=== PATIENT | female | born 1970 | race African-American/Black ===

== ENCOUNTER 2017-03-04 09:41 | Emergency (ER) | payer BC, MEDICAID ==
[~2017-03-04] VITALS: Ht 157.5 cm; Wt 45.0 kg
[~2017-03-04 09:41] MED LIST: AMYL1CAP61 PO; ENAL5TAB PO; GABA-529 PO; HYDR-519 PO; MEGE400O PO; OMEP20CA10 PO; SITA1TAB8 PO
[2017-03-04] MEDS ORDERED: SODIUM CHLORIDE 0.9% 1,000 ML IV ONE (12:45)
[2017-03-04] MEDS ORDERED: METOCLOPRAMIDE HCL 10MG/2ML VIAL IV ONE (12:45)
[2017-03-04] MEDS ORDERED: MORPHINE SULFATE 4 MG/ML CPJ (NOT FOR IM USE) IV ONE (12:45)
[2017-03-04 13:02] LABS: CLARITY URINE CLOUDY (CLEAR); COLOR URINE DARK YELLOW (YELLOW); GLUCOSE URINE 3+ (NEGATIVE); KETONES URINE TRACE (NEGATIVE); LEUKOCYTE ESTERASE URINE NEGATIVE (NEGATIVE); NITRITE URINE NEGATIVE (NEGATIVE); OCCULT BLOOD URINE NEGATIVE (NEGATIVE); PH URINE 5.5 (4.5-8.0); PROTEIN URINE 2+ (NEGATIVE); SPECIFIC GRAVITY URINE 1.042 (1.005-1.030)
[2017-03-04 13:08] LABS: DIFFERENTIAL COMMENT 0; HEMATOCRIT. 37.8 % (36.0-48.0); HEMOGLOBIN. 11.5 g/dL (12.0-16.0); MEAN CORPUSCULAR HEMOGLOBIN 22.9 pg (28.0-32.0); MEAN CORPUSCULAR HGB CONC 30.4 g/dL (31.0-37.0); MEAN CORPUSCULAR VOLUME 75.1 fL (81.0-99.0); PLATELET 256 x1000/uL (130-400); RED BLOOD CELL COUNT 5.03 mill/uL (4.2-5.4); RED CELL DISTRIBUTION WIDTH 14.4 % (11.6-14.6)
[2017-03-04 13:10] LABS: CHLORIDE 98 mEq/L (98-107); INDEX HEMOLYSI 1 (1-3); INDEX ICTERIC 1 (1-4); INDEX LIPEMIC 1 (1-3)
[2017-03-04 13:15] LABS: AMORPHOUS SEDIMENT URINE 2+ /lpf; BACTERIA URINE TRACE; MUCUS URINE 2+ /lpf (< = 2+); RBC URINE NONE SEEN /hpf (0-2); SQUAMOUS EPITHELIAL CELL URINE 2+ /lpf (RARE/1+); WBC URINE 0-2 /hpf (0-2)
[2017-03-04 13:16] LABS: ALANINE AMINOTRANSFERASE 18 IU/L (13-61); ALBUMIN 3.8 g/dL (3.4-5.0); ANION GAP 12; CALCIUM 8.9 mg/dL (8.5-10.1); CARBON DIOXIDE 29 mEq/L (21-32); LIPASE 40 IU/L (73-393); UREA NITROGEN BLOOD 13 mg/dL (7-21)
[2017-03-04 13:18] LABS: eGFR > 60 mL/min (>60)
[2017-03-04 13:25] LABS: HYPOCHROMASIA 1+; PLATELET ESTIMATE NORMAL
[2017-03-04 17:25] VITALS: BP 118/78
== END 2017-03-04 17:37 | disposition home or self-care (01) ==
LOC: ER 11:39
DX: K86.1 Other chronic pancreatitis (principal); K76.0 Fatty (change of) liver, not elsewhere classified; R10.13 Epigastric pain; Z88.6 Allergy status to analgesic agent; I10 Essential (primary) hypertension; E11.9 Type 2 diabetes mellitus without complications
CPT/HCPCS: 36415; 76705; 80053; 81001; 81025; 83690; 85007; 85027; 96361; 96374; 96375; 99285; G0482; J2270; J2765; J7030; Z7610

== ENCOUNTER 2017-05-22 11:18 | Emergency (ER) | payer BC, MEDICAID ==
[~2017-05-22] VITALS: Ht 157.5 cm; Wt 45.0 kg
[2017-05-22] MEDS ORDERED: MORPHINE SULFATE 4 MG/ML CPJ (NOT FOR IM USE) IV STA (12:27)
[2017-05-22] MEDS ORDERED: ONDANSETRON HCL 4MG/2ML VIAL IV STA (12:27)
[2017-05-22 12:45] LABS: BASOPHILS % 1.2 % (0.0-2.0); EOSINOPHILS % 1.3 % (0.0-5.0); HEMATOCRIT. 36.2 % (36.0-48.0); HEMOGLOBIN. 11.1 g/dL (12.0-16.0); LYMPHOCYTES % 29.5 % (20.0-50.0); MEAN CORPUSCULAR HEMOGLOBIN 21.8 pg (28.0-32.0); MEAN PLATELET VOLUME 8.1 fl (7.4-10.4); MONOCYTES % 4.9 % (2.0-8.0); NEUTROPHILS % 63.1 % (40.0-76.0); PLATELET 289 x1000/uL (130-400); RED CELL DISTRIBUTION WIDTH 14.6 % (11.6-14.6)
[2017-05-22 12:52] VITALS: BP 137/85
[2017-05-22 12:52] LABS: CHLORIDE 97 mEq/L (98-107)
[2017-05-22 12:53] LABS: INR 1.1
[2017-05-22 12:58] LABS: CARBON DIOXIDE 29 mEq/L (21-32)
[2017-05-22 13:35] LABS: CLARITY URINE CLEAR (CLEAR); COLOR URINE YELLOW (YELLOW); GLUCOSE URINE 3+ (NEGATIVE); KETONES URINE NEGATIVE (NEGATIVE); LEUKOCYTE ESTERASE URINE NEGATIVE (NEGATIVE); NITRITE URINE NEGATIVE (NEGATIVE); OCCULT BLOOD URINE NEGATIVE (NEGATIVE); PH URINE 5.5 (4.5-8.0); PROTEIN URINE 2+ (NEGATIVE); SPECIFIC GRAVITY URINE 1.041 (1.005-1.030)
== END 2017-05-22 13:00 | disposition home or self-care (01) ==
LOC: ER 12:40
DX: K86.1 Other chronic pancreatitis (principal); I10 Essential (primary) hypertension; E11.9 Type 2 diabetes mellitus without complications; F12.90 Cannabis use, unspecified, uncomplicated
CPT/HCPCS: 36415; 80053; 81001; 83690; 85025; 85610; 96374; 96375; 99284; J2270; J2405; Z7610

== ENCOUNTER 2017-06-13 14:11 | Emergency (ER) | payer BC, MEDICAID ==
[~2017-06-13] VITALS: Ht 157.5 cm; Wt 45.0 kg
[2017-06-13] MEDS ORDERED: MORPHINE SULFATE 4 MG/ML CPJ (NOT FOR IM USE) IV STA (17:08)
[2017-06-13] MEDS ORDERED: SODIUM CHLORIDE 0.9% 1,000 ML IV ONE (17:08)
[2017-06-13] MEDS ORDERED: METOCLOPRAMIDE HCL 10MG/2ML VIAL IV ONE (17:15)
[2017-06-13 17:25] LABS: BASOPHILS % 1.4 % (0.0-2.0); EOSINOPHILS % 1.9 % (0.0-5.0); HEMATOCRIT. 35.8 % (36.0-48.0); LYMPHOCYTES % 27.4 % (20.0-50.0); MEAN CORPUSCULAR HEMOGLOBIN 21.8 pg (28.0-32.0); MEAN CORPUSCULAR VOLUME 71.1 fL (81.0-99.0); MEAN PLATELET VOLUME 8.2 fl (7.4-10.4); MONOCYTES % 6.1 % (2.0-8.0); NEUTROPHILS % 63.2 % (40.0-76.0); PLATELET 292 x1000/uL (130-400); RED BLOOD CELL COUNT 5.03 mill/uL (4.2-5.4); RED CELL DISTRIBUTION WIDTH 16.2 % (11.6-14.6)
[2017-06-13 17:34] LABS: CARBON DIOXIDE 31 mEq/L (21-32); CHLORIDE 99 mEq/L (98-107); ETHANOL BLOOD < 10 mg/dL
[2017-06-13 17:42] LABS: CLARITY URINE CLEAR (CLEAR); COLOR URINE YELLOW (YELLOW); GLUCOSE URINE 3+ (NEGATIVE); KETONES URINE TRACE (NEGATIVE); LEUKOCYTE ESTERASE URINE NEGATIVE (NEGATIVE); NITRITE URINE NEGATIVE (NEGATIVE); OCCULT BLOOD URINE NEGATIVE (NEGATIVE); PH URINE 5.5 (4.5-8.0); PROTEIN URINE 2+ (NEGATIVE); SPECIFIC GRAVITY URINE 1.035 (1.005-1.030)
[2017-06-13 18:30] VITALS: BP 152/86
== END 2017-06-13 18:46 | disposition home or self-care (01) ==
LOC: ER 17:31
DX: R10.9 Unspecified abdominal pain (principal); R11.2 Nausea with vomiting, unspecified; Z87.19 Personal history of other diseases of the digestive system; Z88.6 Allergy status to analgesic agent
CPT/HCPCS: 36415; 80053; 81001; 81025; 83690; 85025; 96361; 96374; 96375; 99284; G0482; J2270; J2765; J7030; Z7610

== ENCOUNTER 2017-07-13 09:14 | Emergency (ER) | payer BC ==
[~2017-07-13] VITALS: Ht 157.5 cm; Wt 48.0 kg
[2017-07-13] MEDS ORDERED: SODIUM CHLORIDE 0.9% 1,000 ML IV ONE (09:33)
[2017-07-13] MEDS ORDERED: FAMOTIDINE 20MG/2ML VIAL IV STA (09:33)
[2017-07-13] MEDS ORDERED: MORPHINE SULFATE 4 MG/ML CPJ (NOT FOR IM USE) IV STA (09:33)
[2017-07-13] MEDS ORDERED: ONDANSETRON HCL 4MG/2ML VIAL IV STA (09:33)
[2017-07-13 09:37] VITALS: BP 128/61
[2017-07-13 09:59] LABS: CLARITY URINE CLOUDY (CLEAR); COLOR URINE YELLOW (YELLOW); GLUCOSE URINE TRACE (NEGATIVE); KETONES URINE NEGATIVE (NEGATIVE); LEUKOCYTE ESTERASE URINE NEGATIVE (NEGATIVE); NITRITE URINE NEGATIVE (NEGATIVE); OCCULT BLOOD URINE NEGATIVE (NEGATIVE); PH URINE 5.5 (4.5-8.0); PROTEIN URINE 1+ (NEGATIVE)
[2017-07-13 10:23] LABS: BASOPHILS % 0.9 % (0.0-2.0); EOSINOPHILS % 4.6 % (0.0-5.0); HEMOGLOBIN. 10.7 g/dL (12.0-16.0); MEAN CORPUSCULAR HEMOGLOBIN 21.9 pg (28.0-32.0); NEUTROPHILS % 54.5 % (40.0-76.0); PLATELET 280 x1000/uL (130-400); RED BLOOD CELL COUNT 4.86 mill/uL (4.2-5.4); RED CELL DISTRIBUTION WIDTH 17.2 % (11.6-14.6)
[2017-07-13] MEDS ORDERED: CEFTRIAXONE 1 G PREMIX 50 ML IV ONE (10:30)
[2017-07-13 10:31] LABS: CHLORIDE 98 mEq/L (98-107)
[2017-07-13 10:33] LABS: PARTIAL THROMBOPLASTIN TIME 23.9 sec (24.0-34.0); PROTHROMBIN TIME 10.9 sec
[2017-07-13 10:34] LABS: CARBON DIOXIDE 29 mEq/L (21-32); ETHANOL BLOOD < 10 mg/dL
[2017-07-13 10:40] LABS: HCG SCREEN NEGATIVE
[2017-07-13 10:43] LABS: *AMPHETAMINES SCREEN URINE NEGATIVE (NEGATIVE); *BARBITURATES SCREEN URINE NEGATIVE (NEGATIVE); *BENZODIAZEPINES SCREEN URINE NEGATIVE (NEGATIVE); *COCAINE SCREEN URINE NEGATIVE (NEGATIVE); METHADONE URINE SCREEN NEGATIVE (NEGATIVE); PHENCYCLIDINE URINE SCREEN NEGATIVE (NEGATIVE)
[2017-07-13 10:52] LABS: CANNABINOID URINE SCREEN PRESUMTIVE POSITIVE (NEGATIVE); OPIATES URINE SCREEN PRESUMTIVE POSITIVE (NEGATIVE)
[2017-07-13] MEDS ORDERED: ONDANSETRON HCL 4MG/2ML VIAL IV ONE (11:45)
== END 2017-07-13 11:52 | disposition home or self-care (01) ==
LOC: ER 10:07
DX: N39.0 Urinary tract infection, site not specified (principal); K86.1 Other chronic pancreatitis; I10 Essential (primary) hypertension; F12.10 Cannabis abuse, uncomplicated; E11.9 Type 2 diabetes mellitus without complications; D64.9 Anemia, unspecified; F11.10 Opioid abuse, uncomplicated; Z88.6 Allergy status to analgesic agent
CPT/HCPCS: 36415; 74010; 80053; 80305; 81001; 82962; 83690; 84703; 85025; 85610; 85730; 87077; 87086; 96361; 96365; 96375; 99285; G0482; J0696; J2270; J2405; J3490; Z7610; J7030

== ENCOUNTER 2017-07-30 11:34 | Emergency (ER) | payer BC ==
[~2017-07-30] VITALS: Ht 157.5 cm; Wt 48.0 kg
[2017-07-30] MEDS ORDERED: SODIUM CHLORIDE 0.9% 1,000 ML IV ONE (14:39)
[2017-07-30] MEDS ORDERED: FAMOTIDINE 20MG/2ML VIAL IV STA (14:39)
[2017-07-30] MEDS ORDERED: MORPHINE SULFATE 4 MG/ML CPJ (NOT FOR IM USE) IV STA (14:39)
[2017-07-30] MEDS ORDERED: ONDANSETRON HCL 4MG/2ML VIAL IV STA (14:39)
[2017-07-30 15:00] LABS: BASOPHILS % 0.9 % (0.0-2.0); EOSINOPHILS % 2.2 % (0.0-5.0); HEMATOCRIT. 32.4 % (36.0-48.0); HEMOGLOBIN. 9.9 g/dL (12.0-16.0); MEAN CORPUSCULAR HEMOGLOBIN 21.9 pg (28.0-32.0); MEAN CORPUSCULAR VOLUME 71.7 fL (81.0-99.0); MEAN PLATELET VOLUME 8.2 fl (7.4-10.4); MONOCYTES % 8.1 % (2.0-8.0); NEUTROPHILS % 45.8 % (40.0-76.0); PLATELET 337 x1000/uL (130-400); RED BLOOD CELL COUNT 4.52 mill/uL (4.2-5.4); RED CELL DISTRIBUTION WIDTH 16.6 % (11.6-14.6)
[2017-07-30 15:04] LABS: CHLORIDE 100 mEq/L (98-107); INR 1.1; PROTHROMBIN TIME 11.9 sec (9.4-11.6)
[2017-07-30 15:13] LABS: CARBON DIOXIDE 29 mEq/L (21-32)
[2017-07-30 15:38] LABS: CLARITY URINE CLEAR (CLEAR); COLOR URINE YELLOW (YELLOW); GLUCOSE URINE 2+ (NEGATIVE); KETONES URINE NEGATIVE (NEGATIVE); LEUKOCYTE ESTERASE URINE NEGATIVE (NEGATIVE); NITRITE URINE NEGATIVE (NEGATIVE); OCCULT BLOOD URINE NEGATIVE (NEGATIVE); PH URINE 5.5 (4.5-8.0); PROTEIN URINE 2+ (NEGATIVE); SPECIFIC GRAVITY URINE 1.038 (1.005-1.030)
[2017-07-30 16:51] VITALS: BP 116/77
== END 2017-07-30 16:53 | disposition home or self-care (01) ==
LOC: ER 11:34
DX: R10.13 Epigastric pain (principal); R11.2 Nausea with vomiting, unspecified
CPT/HCPCS: 36415; 80053; 81001; 81025; 83690; 85025; 85610; 93005; 96361; 96374; 96375; 99285; J2270; J2405; J3490; J7030; Z7610

== ENCOUNTER 2017-10-01 21:39 | Emergency (ER) | payer BC ==
[~2017-10-01] VITALS: Ht 157.5 cm; Wt 49.0 kg
[2017-10-01] MEDS ORDERED: MORPHINE SULFATE 4 MG/ML CPJ (NOT FOR IM USE) IV STA (23:27)
[2017-10-01] MEDS ORDERED: SODIUM CHLORIDE 0.9% 1,000 ML IV ONE (23:27)
[2017-10-01] MEDS ORDERED: FAMOTIDINE 20MG/2ML VIAL IV STA (23:27)
[2017-10-01] MEDS ORDERED: ONDANSETRON HCL 4MG/2ML VIAL IV STA (23:27)
[2017-10-02 00:06] LABS: BASOPHILS % 0.4 % (0.0-2.0); EOSINOPHILS % 2.5 % (0.0-5.0); HEMOGLOBIN. 12.3 g/dL (12.0-16.0); LYMPHOCYTES % 46.9 % (20.0-50.0); MEAN CORPUSCULAR HEMOGLOBIN 23.5 pg (28.0-32.0); MEAN CORPUSCULAR VOLUME 74.7 fL (81.0-99.0); MEAN PLATELET VOLUME 8.4 fl (7.4-10.4); MONOCYTES % 6.8 % (2.0-8.0); NEUTROPHILS % 43.4 % (40.0-76.0); PLATELET 233 x1000/uL (130-400); RED BLOOD CELL COUNT 5.21 mill/uL (4.2-5.4); RED CELL DISTRIBUTION WIDTH 14.9 % (11.6-14.6)
[2017-10-02 00:08] LABS: CHLORIDE 99 mEq/L (98-107)
[2017-10-02 00:18] LABS: CARBON DIOXIDE 29 mEq/L (21-32)
[2017-10-02] MEDS ORDERED: METOCLOPRAMIDE HCL 10MG/2ML VIAL IV ONE (02:00)
[2017-10-02 06:11] VITALS: BP 131/88
== END 2017-10-02 06:20 | disposition home or self-care (01) ==
LOC: ER 23:18
DX: K86.1 Other chronic pancreatitis (principal); E11.9 Type 2 diabetes mellitus without complications; F17.200 Nicotine dependence, unspecified, uncomplicated; Z88.6 Allergy status to analgesic agent
CPT/HCPCS: 36415; 80053; 83690; 85025; 96361; 96374; 96375; 99285; J2270; J2405; J2765; J3490; J7030; Z7610

== ENCOUNTER 2017-10-27 13:52 | Emergency (ER) | payer BC ==
[~2017-10-27] VITALS: Ht 157.5 cm; Wt 79.0 kg
[2017-10-27] MEDS ORDERED: ONDANSETRON HCL 4MG/2ML VIAL IV ONE ×2 (14:45→18:00)
[2017-10-27 15:15] LABS: BASOPHILS % 0.4 % (0.0-2.0); EOSINOPHILS % 2.4 % (0.0-5.0); HEMATOCRIT. 39.4 % (36.0-48.0); HEMOGLOBIN. 12.1 g/dL (12.0-16.0); LYMPHOCYTES % 22.6 % (20.0-50.0); MEAN CORPUSCULAR HEMOGLOBIN 22.7 pg (28.0-32.0); MEAN CORPUSCULAR VOLUME 74.2 fL (81.0-99.0); MEAN PLATELET VOLUME 8.4 fl (7.4-10.4); MONOCYTES % 5.7 % (2.0-8.0); NEUTROPHILS % 68.9 % (40.0-76.0); PLATELET 209 x1000/uL (130-400); RED BLOOD CELL COUNT 5.32 mill/uL (4.2-5.4)
[2017-10-27 15:17] LABS: PROTHROMBIN TIME 10.7 sec (9.4-11.6)
[2017-10-27 15:22] LABS: CARBON DIOXIDE 26 mEq/L (21-32); CHLORIDE 103 mEq/L (98-107)
[2017-10-27 15:28] LABS: TROPONIN I < 0.02 ng/mL (0.00-0.04)
[2017-10-27] MEDS ORDERED: MAGNESIUM/ALUMINUM HYDROXIDE/SIMETHICONE 30ML UDC PO STA (17:53)
[2017-10-27] MEDS ORDERED: SODIUM CHLORIDE 0.9% 1,000 ML IV ONE (18:00)
[2017-10-27] MEDS ORDERED: MORPHINE SULFATE 4 MG/ML CPJ (NOT FOR IM USE) IV ONE (18:00)
[2017-10-27] MEDS ORDERED: MORPHINE SULFATE 10 MG/ML CPJ IV SCH (18:08)
[2017-10-27] MEDS: FAMOTIDINE 20MG/2ML VIAL IV SCH ×2 (18:44→21:12)
[2017-10-27] MEDS ORDERED: METOCLOPRAMIDE HCL 10MG/2ML VIAL IV ONE (20:45)
[2017-10-27] MEDS ORDERED: FENTANYL CITRATE/PF 50MCG/ML 2ML VIAL IV ONE (20:45)
[2017-10-27] MEDS ORDERED: DIPHENHYDRAMINE 50MG/ML VIAL IV ONE (20:45)
[2017-10-27 22:04] VITALS: BP 145/90
== END 2017-10-27 22:05 | disposition home or self-care (01) ==
LOC: ER 14:14
DX: K85.90 Acute pancreatitis without necrosis or infection, unspecified (principal); K86.1 Other chronic pancreatitis; E11.40 Type 2 diabetes mellitus with diabetic neuropathy, unspecified; R03.0 Elevated blood-pressure reading, without diagnosis of hypertension; I51.7 Cardiomegaly; K21.9 Gastro-esophageal reflux disease without esophagitis; K29.50 Unspecified chronic gastritis without bleeding; Z88.8 Allergy status to other drugs, medicaments and biological substances; Z79.899 Other long term (current) drug therapy
CPT/HCPCS: 36415; 71010; 80053; 83690; 83880; 84484; 85025; 85610; 93005; 96361; 96374; 96375; 96376; 99285; J1200; J2270; J2405; J2765; J3010; J3490; J7030

== ENCOUNTER 2018-11-03 06:05 | Emergency (ER) | payer BC ==
[~2018-11-03] VITALS: Ht 157.5 cm; Wt 48.0 kg
[2018-11-03] MEDS ORDERED: ONDANSETRON HCL 4MG/2ML INJ IV STA ×2 (06:52→08:43)
[2018-11-03] MEDS ORDERED: SODIUM CHLORIDE 0.9% 1,000 ML IV ONE (06:52)
[2018-11-03] MEDS ORDERED: MORPHINE SULFATE 4 MG/ML CPJ (NOT FOR IM USE) IV STA ×2 (06:52→08:43)
[2018-11-03 07:44] LABS: CLARITY URINE CLOUDY (CLEAR); COLOR URINE YELLOW (YELLOW); KETONES URINE NEGATIVE (NEGATIVE); LEUKOCYTE ESTERASE URINE NEGATIVE (NEGATIVE); NITRITE URINE NEGATIVE (NEGATIVE); OCCULT BLOOD URINE NEGATIVE (NEGATIVE); PROTEIN URINE NEGATIVE (NEGATIVE); SPECIFIC GRAVITY URINE 1.022 (1.005-1.030); UROBILINOGEN URINE 0.2 E.U./dL (0.2-1.0)
[2018-11-03 08:13] LABS: BASOPHILS % 0.2 % (0.0-2.0); EOSINOPHILS % 6.5 % (0.0-5.0); HEMATOCRIT. 39.4 % (36.0-48.0); HEMOGLOBIN. 12.2 g/dL (12.0-16.0); MEAN CORPUSCULAR HEMOGLOBIN 23.5 pg (28.0-32.0); MEAN CORPUSCULAR VOLUME 76.1 fL (81.0-99.0); MEAN PLATELET VOLUME 8.9 fl (7.4-10.4); MONOCYTES % 5.8 % (2.0-8.0); NEUTROPHILS % 56.5 % (40.0-76.0); PLATELET 238 x1000/uL (130-400); RED BLOOD CELL COUNT 5.17 mill/uL (4.2-5.4); RED CELL DISTRIBUTION WIDTH 14.3 % (11.6-14.6)
[2018-11-03 08:17] LABS: CHLORIDE 96 mEq/L (98-107)
[2018-11-03 08:18] LABS: PROTHROMBIN TIME 10.2 sec (9.1-11.1)
[2018-11-03] MEDS ORDERED: FAMOTIDINE 20MG/2ML VIAL IV ONE (10:45)
[2018-11-03] MEDS ORDERED: METOCLOPRAMIDE HCL 10MG/2ML VIAL IV ONE (10:45)
[2018-11-03] MEDS ORDERED: IOHEXOL-300 100 ML BOTTLE ONE (10:53)
[2018-11-03 12:37] VITALS: BP 146/74
== END 2018-11-03 12:40 | disposition home or self-care (01) ==
LOC: ER 06:05
DX: R10.11 Right upper quadrant pain (principal); R11.2 Nausea with vomiting, unspecified; E11.9 Type 2 diabetes mellitus without complications; Z79.899 Other long term (current) drug therapy; Z88.6 Allergy status to analgesic agent
CPT/HCPCS: 36415; 74177; 76705; 80053; 81003; 81025; 83690; 85025; 85610; 96361; 96374; 96375; 96376; 99284; J2270; J2405; J2765; J3490; J7030; Q9967

== ENCOUNTER 2018-12-03 07:46 | Emergency (ER) | payer BC ==
[~2018-12-03] VITALS: Ht 157.5 cm; Wt 46.2 kg
[2018-12-03] MEDS ORDERED: SODIUM CHLORIDE 0.9% 1,000 ML IV ONE (08:11)
[2018-12-03] MEDS ORDERED: ONDANSETRON HCL 4MG/2ML INJ IV STA (08:11)
[2018-12-03] MEDS ORDERED: MORPHINE SULFATE 4 MG/ML CPJ (NOT FOR IM USE) IV STA (08:11)
[2018-12-03] MEDS ORDERED: MORPHINE SULFATE 10 MG/ML CPJ IV NR (08:31)
[2018-12-03 09:10] LABS: BASOPHILS % 0.5 % (0.0-2.0); EOSINOPHILS % 3.2 % (0.0-5.0); HEMATOCRIT. 40.1 % (36.0-48.0); HEMOGLOBIN. 12.4 g/dL (12.0-16.0); LYMPHOCYTES % 32.1 % (20.0-50.0); MEAN CORPUSCULAR HEMOGLOBIN 23.2 pg (28.0-32.0); MEAN CORPUSCULAR VOLUME 75.1 fL (81.0-99.0); MEAN PLATELET VOLUME 8.5 fl (7.4-10.4); MONOCYTES % 7.2 % (2.0-8.0); PLATELET 264 x1000/uL (130-400); RED BLOOD CELL COUNT 5.34 mill/uL (4.2-5.4); RED CELL DISTRIBUTION WIDTH 14.6 % (11.6-14.6)
[2018-12-03 09:16] LABS: CHLORIDE 95 mEq/L (98-107)
[2018-12-03 09:17] LABS: CLARITY URINE CLOUDY (CLEAR); COLOR URINE AMBER (YELLOW); KETONES URINE TRACE (NEGATIVE); LEUKOCYTE ESTERASE URINE NEGATIVE (NEGATIVE); NITRITE URINE NEGATIVE (NEGATIVE); OCCULT BLOOD URINE NEGATIVE (NEGATIVE); PH URINE 5.5 (4.5-8.0); PROTEIN URINE 2+ (NEGATIVE)
[2018-12-03 09:21] LABS: ETHANOL BLOOD < 10 mg/dL
[2018-12-03 09:26] LABS: BETA HYDROXYBUTYRATE 0.4 mMol/L (0.0-0.3)
[2018-12-03] MEDS ORDERED: METOCLOPRAMIDE HCL 10MG/2ML VIAL IV ONE (09:30)
[2018-12-03 10:02] LABS: *AMPHETAMINES SCREEN URINE NEGATIVE (NEGATIVE); *BARBITURATES SCREEN URINE NEGATIVE (NEGATIVE); *BENZODIAZEPINES SCREEN URINE NEGATIVE (NEGATIVE); *COCAINE SCREEN URINE NEGATIVE (NEGATIVE); METHADONE URINE SCREEN NEGATIVE (NEGATIVE); PHENCYCLIDINE URINE SCREEN NEGATIVE (NEGATIVE)
[2018-12-03 10:05] LABS: CANNABINOID URINE SCREEN PRESUMTIVE POSITIVE (NEGATIVE); OPIATES URINE SCREEN PRESUMTIVE POSITIVE (NEGATIVE)
[2018-12-03] MEDS ORDERED: VISCOUS LIDOCAINE 2% 15 ML UDC PO ONE (11:00)
[2018-12-03] MEDS ORDERED: FAMOTIDINE 20MG/2ML VIAL IV ONE (11:00)
[2018-12-03] MEDS ORDERED: MAGNESIUM/ALUMINUM HYDROXIDE/SIMETHICONE 30ML UDC PO ONE (11:00)
[2018-12-03 12:00] VITALS: BP 148/94
== END 2018-12-03 12:30 | disposition home or self-care (01) ==
LOC: ER 07:46
DX: K86.1 Other chronic pancreatitis (principal); E11.65 Type 2 diabetes mellitus with hyperglycemia; Z79.84 Long term (current) use of oral hypoglycemic drugs; R03.0 Elevated blood-pressure reading, without diagnosis of hypertension
CPT/HCPCS: 36415; 80053; 80305; 81003; 81025; 82010; 83690; 85025; 96361; 96374; 96375; 99283; G0482; J2270; J2405; J2765; J3490; J7030

== ENCOUNTER 2020-05-28 07:06 | Emergency (ER) | payer BC ==
[~2020-05-28] VITALS: Ht 157.5 cm; Wt 50.0 kg
[~2020-05-28 07:06] MED LIST changes: -OMEP20CA10 PO; +OMEP20CA14 PO
[2020-05-28] MEDS ORDERED: IBUPROFEN 600MG TABLET PO ONE (08:15)
[2020-05-28] MEDS ORDERED: ACETAMINOPHEN WITH CODEINE 300/30MG TABLET PO ONE (08:30)
[2020-05-28 10:03] VITALS: BP 125/75
== END 2020-05-28 10:04 | disposition home or self-care (01) ==
LOC: ER 07:06
DX: S93.491A Sprain of other ligament of right ankle, initial encounter (principal); W50.2XXA Accidental twist by another person, initial encounter; Y93.89 Activity, other specified; Y92.89 Other specified places as the place of occurrence of the external cause; Y99.8 Other external cause status; E11.9 Type 2 diabetes mellitus without complications; Z79.899 Other long term (current) drug therapy; Z88.6 Allergy status to analgesic agent
CPT/HCPCS: 73610; 99283

== ENCOUNTER 2020-06-24 11:35 | Emergency (ER) | payer BC ==
[~2020-06-24] VITALS: Ht 157.5 cm; Wt 48.1 kg
[2020-06-24] MEDS ORDERED: MORPHINE SULFATE 4 MG/ML CPJ (NOT FOR IM USE) IV STA (13:32)
[2020-06-24] MEDS ORDERED: SODIUM CHLORIDE 0.9% 1,000 ML IV ONE (13:32)
[2020-06-24] MEDS ORDERED: ONDANSETRON HCL 4MG/2ML INJ IV STA (13:32)
[2020-06-24 14:17] LABS: BASOPHILS % 0.4 % (0.0-2.0); EOSINOPHILS % 1.4 % (0.0-5.0); HEMATOCRIT. 35.3 % (36.0-48.0); HEMOGLOBIN. 10.8 g/dL (12.0-16.0); LYMPHOCYTES % 33.4 % (20.0-50.0); MEAN CORPUSCULAR HEMOGLOBIN 22.5 pg (28.0-32.0); MEAN CORPUSCULAR VOLUME 73.4 fL (81.0-99.0); MEAN PLATELET VOLUME 8.4 fl (7.4-10.4); MONOCYTES % 6.5 % (2.0-8.0); NEUTROPHILS % 58.3 % (40.0-76.0); PLATELET 264 x1000/uL (130-400); RED BLOOD CELL COUNT 4.82 mill/uL (4.2-5.4); RED CELL DISTRIBUTION WIDTH 15.3 % (11.6-14.6)
[2020-06-24 14:23] LABS: CHLORIDE 101 mEq/L (98-107)
[2020-06-24 14:28] LABS: HCG SCREEN NEGATIVE
[2020-06-24 14:29] LABS: CLARITY URINE CLEAR (CLEAR); COLOR URINE YELLOW (YELLOW); KETONES URINE TRACE (NEGATIVE); LEUKOCYTE ESTERASE URINE 1+ (NEGATIVE); NITRITE URINE NEGATIVE (NEGATIVE); OCCULT BLOOD URINE NEGATIVE (NEGATIVE); PH URINE 6.5 (4.5-8.0); PROTEIN URINE 1+ (NEGATIVE); SPECIFIC GRAVITY URINE 1.027 (1.005-1.030)
[2020-06-24 16:04] VITALS: BP 185/104
== END 2020-06-24 16:50 | disposition home or self-care (01) ==
LOC: ER 11:35
DX: K86.1 Other chronic pancreatitis (principal); N39.0 Urinary tract infection, site not specified; E11.9 Type 2 diabetes mellitus without complications; Z79.84 Long term (current) use of oral hypoglycemic drugs; Z88.6 Allergy status to analgesic agent
CPT/HCPCS: 36415; 71045; 74176; 80053; 81003; 81025; 83690; 84703; 85025; 93005; 96361; 96374; 96375; 99285; J2270; J2405; J7030

== ENCOUNTER 2020-10-15 10:28 | Emergency (ER) | payer BC ==
[~2020-10-15] VITALS: Ht 157.5 cm; Wt 48.0 kg
[2020-10-15] MEDS ORDERED: MORPHINE SULFATE 4 MG/ML CPJ (NOT FOR IM USE) IV STA (11:07)
[2020-10-15] MEDS ORDERED: ONDANSETRON HCL 4MG/2ML INJ IV STA (11:07)
[2020-10-15] MEDS ORDERED: SODIUM CHLORIDE 0.9% 1,000 ML IV ONE (11:15)
[2020-10-15 11:59] LABS: BASOPHILS % 0.7 % (0.0-2.0); EOSINOPHILS % 1.6 % (0.0-5.0); HEMATOCRIT. 39.3 % (36.0-48.0); HEMOGLOBIN. 11.9 g/dL (12.0-16.0); LYMPHOCYTES % 32.2 % (20.0-50.0); MEAN CORPUSCULAR HEMOGLOBIN 22.5 pg (28.0-32.0); MEAN PLATELET VOLUME 8.7 fl (7.4-10.4); MONOCYTES % 8.5 % (2.0-8.0); PLATELET 261 x1000/uL (130-400); RED BLOOD CELL COUNT 5.31 mill/uL (4.2-5.4); RED CELL DISTRIBUTION WIDTH 15.3 % (11.6-14.6)
[2020-10-15 12:07] LABS: INR 1.1; PARTIAL THROMBOPLASTIN TIME 26.2 sec (23.4-31.0); PROTHROMBIN TIME 11.4 sec (9.6-11.0)
[2020-10-15 12:13] LABS: CLARITY URINE CLEAR (CLEAR); COLOR URINE YELLOW (YELLOW); KETONES URINE NEGATIVE (NEGATIVE); LEUKOCYTE ESTERASE URINE NEGATIVE (NEGATIVE); NITRITE URINE NEGATIVE (NEGATIVE); OCCULT BLOOD URINE NEGATIVE (NEGATIVE); PH URINE 6.5 (4.5-8.0); PROTEIN URINE 2+ (NEGATIVE); SPECIFIC GRAVITY URINE 1.039 (1.005-1.030)
[2020-10-15 12:14] LABS: CHLORIDE 97 mEq/L (98-107)
[2020-10-15 14:10] VITALS: BP 118/88
== END 2020-10-15 14:10 | disposition home or self-care (01) ==
LOC: ER 10:33
DX: R10.13 Epigastric pain (principal); K86.1 Other chronic pancreatitis; E11.9 Type 2 diabetes mellitus without complications; Z79.899 Other long term (current) drug therapy; Z88.6 Allergy status to analgesic agent
CPT/HCPCS: 36415; 71045; 74176; 80053; 81003; 83690; 85025; 85610; 85730; 87086; 93005; 96374; 96375; 99285; J2270; J2405; J7030

== ENCOUNTER 2021-06-05 11:07 | Emergency (ER) | payer BC ==
[~2021-06-05] VITALS: Ht 157.5 cm; Wt 48.0 kg
[~2021-06-05 11:07] MED LIST changes: -ENAL5TAB PO; +ENAL5TAB21 PO
[2021-06-05 11:28] VITALS: BP 156/95
[2021-06-05] MEDS ORDERED: ONDANSETRON HCL 4MG/2ML INJ IV STA (11:46)
[2021-06-05 12:14] LABS: BASOPHILS % 0.6 % (0.0-2.0); EOSINOPHILS % 1.5 % (0.0-5.0); HEMATOCRIT. 32.9 % (36.0-48.0); HEMOGLOBIN. 10.5 g/dL (12.0-16.0); LYMPHOCYTES % 16.5 % (20.0-50.0); MEAN CORPUSCULAR HEMOGLOBIN 23.9 pg (28.0-32.0); MEAN CORPUSCULAR VOLUME 74.8 fL (81.0-99.0); MEAN PLATELET VOLUME 8.4 fl (7.4-10.4); MONOCYTES % 7.6 % (2.0-8.0); NEUTROPHILS % 73.8 % (40.0-76.0); PLATELET 273 x1000/uL (130-400); RED CELL DISTRIBUTION WIDTH 14.8 % (11.6-14.6)
[2021-06-05 12:21] LABS: CHLORIDE 106 mEq/L (98-107)
[2021-06-05] MEDS ORDERED: LACTATED RINGERS 1,000 ML IV STA (12:42)
[2021-06-05] MEDS ORDERED: MORPHINE SULFATE 4 MG/ML CPJ (NOT FOR IM USE) IV ONE ×2 (12:45→15:30)
[2021-06-05] MEDS ORDERED: LOPERAMIDE HCL 2MG CAPSULE PO ONE (15:45)
== END 2021-06-05 16:21 | disposition home or self-care (01) ==
LOC: ER 11:07
DX: K85.90 Acute pancreatitis without necrosis or infection, unspecified (principal); E11.9 Type 2 diabetes mellitus without complications; Z88.6 Allergy status to analgesic agent; Z79.899 Other long term (current) drug therapy
CPT/HCPCS: 36415; 71045; 80053; 83690; 84484; 85025; 93005; 96361; 96374; 96375; 96376; 99285; J2270; J2405; J7120

== ENCOUNTER 2021-09-16 05:04 | Emergency (ER) | payer BC ==
[~2021-09-16] VITALS: Ht 157.5 cm; Wt 45.0 kg
[2021-09-16] MEDS ORDERED: HYDROCODONE/ACETAMINOPHEN 5/325MG TABLET PO STA (05:35)
[2021-09-16] MEDS ORDERED: LACTULOSE 20G/30ML UDC PO ONE (05:45)
[2021-09-16] MEDS ORDERED: GLYCERIN ADULT SUPPOSITORY PR ONE (06:00)
[2021-09-16] MEDS ORDERED: SODIUM CHLORIDE 0.9% 1,000 ML IV ONE (06:00)
[2021-09-16] MEDS ORDERED: METOCLOPRAMIDE HCL 10MG/2ML VIAL IV ONE (06:00)
[2021-09-16] MEDS ORDERED: BISACODYL 5MG TABLET PO ONE (06:00)
[2021-09-16 06:06] LABS: BASOPHILS % 0.7 % (0.0-2.0); HEMATOCRIT. 33.9 % (36.0-48.0); HEMOGLOBIN. 10.3 g/dL (12.0-16.0); LYMPHOCYTES % 39.1 % (20.0-50.0); MEAN CORPUSCULAR HEMOGLOBIN 23.3 pg (28.0-32.0); MEAN CORPUSCULAR VOLUME 76.5 fL (81.0-99.0); MEAN PLATELET VOLUME 8.5 fl (7.4-10.4); MONOCYTES % 5.9 % (2.0-8.0); NEUTROPHILS % 50.3 % (40.0-76.0); PLATELET 300 x1000/uL (130-400); RED BLOOD CELL COUNT 4.43 mill/uL (4.2-5.4); RED CELL DISTRIBUTION WIDTH 14.8 % (11.6-14.6)
[2021-09-16 06:11] LABS: CHLORIDE 103 mEq/L (98-107)
[2021-09-16] MEDS ORDERED: MORPHINE SULFATE 4 MG/ML CPJ (NOT FOR IM USE) IV ONE (06:15)
[2021-09-16 06:17] LABS: INR 0.9; PROTHROMBIN TIME 10.2 sec (9.6-11.0)
[2021-09-16 06:33] LABS: CLARITY URINE CLEAR (CLEAR); COLOR URINE YELLOW (YELLOW); KETONES URINE TRACE (NEGATIVE); LEUKOCYTE ESTERASE URINE NEGATIVE (NEGATIVE); NITRITE URINE NEGATIVE (NEGATIVE); OCCULT BLOOD URINE NEGATIVE (NEGATIVE); PH URINE 6.5 (4.5-8.0); PROTEIN URINE TRACE (NEGATIVE); SPECIFIC GRAVITY URINE 1.027 (1.005-1.030)
[2021-09-16] MEDS ORDERED: LACT10SO3 MT (09:33)
[2021-09-16] MEDS ORDERED: DOCU283E5 RC (09:34)
[2021-09-16] MEDS ORDERED: NA PHOS,M-B/NA PHOS,DI-BA ENEMA 118ML PR ONE (09:45)
[2021-09-16 10:45] VITALS: BP 178/100
== END 2021-09-16 10:55 | disposition home or self-care (01) ==
LOC: ER 05:04
DX: K86.1 Other chronic pancreatitis (principal); K59.00 Constipation, unspecified; E11.9 Type 2 diabetes mellitus without complications; Z79.899 Other long term (current) drug therapy
CPT/HCPCS: 36415; 80053; 81003; 83690; 85025; 85610; 96361; 96374; 96375; 99285; J2270; J2765; J7030

== ENCOUNTER 2022-07-09 07:09 | Emergency (ER) | payer BC ==
[~2022-07-09] VITALS: Ht 157.5 cm; Wt 44.6 kg
[~2022-07-09 07:09] MED LIST changes: +DOCU283E5 RC; +LACT10SO3 MT
[2022-07-09] MEDS ORDERED: ONDANSETRON HCL 4MG/2ML INJ IV STA ×2 (08:41→11:17)
[2022-07-09] MEDS ORDERED: MORPHINE SULFATE 4 MG/ML CPJ (NOT FOR IM USE) IV STA ×2 (08:41→11:17)
[2022-07-09] MEDS ORDERED: SODIUM CHLORIDE 0.9% 1,000 ML IV ONE (08:45)
[2022-07-09 08:54] LABS: BASOPHILS % 0.7 % (0.0-2.0); HEMATOCRIT. 35.8 % (36.0-48.0); HEMOGLOBIN. 10.9 g/dL (12.0-16.0); LYMPHOCYTES % 42.7 % (20.0-50.0); MEAN CORPUSCULAR HEMOGLOBIN 23.2 pg (28.0-32.0); MEAN CORPUSCULAR VOLUME 76.5 fL (81.0-99.0); MEAN PLATELET VOLUME 8.6 fl (7.4-10.4); MONOCYTES % 6.7 % (2.0-8.0); NEUTROPHILS % 42.9 % (40.0-76.0); PLATELET 268 x1000/uL (130-400); RED BLOOD CELL COUNT 4.68 mill/uL (4.2-5.4); RED CELL DISTRIBUTION WIDTH 15.7 % (11.6-14.6)
[2022-07-09 09:02] LABS: CHLORIDE 103 mEq/L (98-107); HCG SCREEN NEGATIVE
[2022-07-09 09:06] VITALS: BP 178/101
[2022-07-09 09:09] LABS: ETHANOL BLOOD < 10 mg/dL
[2022-07-09 09:22] LABS: *AMPHETAMINES SCREEN URINE NEGATIVE (NEGATIVE); *BARBITURATES SCREEN URINE NEGATIVE (NEGATIVE); *BENZODIAZEPINES SCREEN URINE NEGATIVE (NEGATIVE); *COCAINE SCREEN URINE NEGATIVE (NEGATIVE); CANNABINOID URINE SCREEN PRESUMTIVE POSITIVE (NEGATIVE); METHADONE URINE SCREEN NEGATIVE (NEGATIVE); OPIATES URINE SCREEN PRESUMTIVE POSITIVE (NEGATIVE); PHENCYCLIDINE URINE SCREEN NEGATIVE (NEGATIVE)
[2022-07-09] MEDS ORDERED: KETOROLAC 15MG/ML VIAL IV ONE (10:45)
== END 2022-07-09 12:00 | disposition home or self-care (01) ==
LOC: ER 07:34
DX: K86.1 Other chronic pancreatitis (principal); Z88.6 Allergy status to analgesic agent; Z79.899 Other long term (current) drug therapy
CPT/HCPCS: 36415; 74176; 80053; 80305; 80320; 83690; 84703; 85025; 93005; 96361; 96374; 96375; 96376; 99285; J1885; J2270; J2405; J7030; G0480

== ENCOUNTER 2022-12-22 07:53 | Emergency (ER) | payer BC ==
[~2022-12-22] VITALS: Ht 157.5 cm; Wt 48.0 kg
[2022-12-22] MEDS ORDERED: KETOROLAC 30MG/ML VIAL IM ONE (11:00)
[2022-12-22 11:11] VITALS: BP 147/77
[2022-12-22] MEDS ORDERED: PIPERACILLIN/TAZ 3.375G PREMIX 50 ML IV ONE (11:15)
[2022-12-22 11:36] LABS: BG BASE EXCESS 0.2 mmol/L (-2.0-2.0); BG CARBOXYHEMOGLOBIN 2.1 % (0.5-1.5); BG DEOXYHEMOGLOBIN 5.3 % (0.0-5.0); BG HCO3 ACT 24.9 mmol/L (22.0-26.0); BG METHEMOGLOBIN 0.3 % (0.0-1.5); BG OXYGEN SATURATION 94.6 % (92.0-98.5); BG OXYHEMOGLOBIN 92.3 % (94.0-97.0); BG PH 7.402 (7.350-7.450); BG PO2 76.3 mmHg (75.0-100.0); BG SAMPLE SITE RIGHT BRACHIAL; BG TOTAL HEMOGLOBIN 11.4 g/dL (12.0-18.0); BG VENT MODE ROOM AIR
[2022-12-22] MEDS ORDERED: AMOX1TAB16 MT (11:55)
[2022-12-22] MEDS ORDERED: TOPUD MT (11:55)
== END 2022-12-22 12:05 | disposition home or self-care (01) ==
LOC: ER 08:10
DX: L08.9 Local infection of the skin and subcutaneous tissue, unspecified (principal); Z48.00 Encounter for change or removal of nonsurgical wound dressing
CPT/HCPCS: 36600; 82375; 82805; 82962; 96365; 96372; 99284; J1885; J2543; Z7610

== ENCOUNTER 2023-04-24 12:51 | Emergency (ER) | payer BC ==
[~2023-04-24] VITALS: Ht 157.5 cm; Wt 48.0 kg
[~2023-04-24 12:51] MED LIST changes: +AMOX1TAB16 MT; +ENAL-75 PO; -ENAL5TAB21 PO; +TOPUD MT
[2023-04-24 16:08] VITALS: BP 105/72
[2023-04-24] MEDS ORDERED: IBUPROFEN 600MG TABLET PO STA (16:08)
[2023-04-24] MEDS ORDERED: MAGNESIUM/ALUMINUM HYDROXIDE/SIMETHICONE 30ML UDC PO STA (16:08)
[2023-04-24 16:30] LABS: BASOPHILS % 0.6 % (0.0-2.0); EOSINOPHILS % 0.3 % (0.0-5.0); HEMATOCRIT. 36.9 % (36.0-48.0); HEMOGLOBIN. 11.2 g/dL (12.0-16.0); LYMPHOCYTES % 28.2 % (20.0-50.0); MEAN CORPUSCULAR HEMOGLOBIN 22.2 pg (28.0-32.0); MEAN CORPUSCULAR VOLUME 72.9 fL (81.0-99.0); MEAN PLATELET VOLUME 8.3 fl (7.4-10.4); MONOCYTES % 9.2 % (2.0-8.0); NEUTROPHILS % 61.7 % (40.0-76.0); PLATELET 355 x1000/uL (130-400); RED BLOOD CELL COUNT 5.06 mill/uL (4.2-5.4); RED CELL DISTRIBUTION WIDTH 16.4 % (11.6-14.6)
[2023-04-24 16:39] LABS: CHLORIDE 96 mEq/L (98-107)
[2023-04-24 16:48] LABS: *AMPHETAMINES SCREEN URINE NEGATIVE (NEGATIVE); *BARBITURATES SCREEN URINE NEGATIVE (NEGATIVE); *BENZODIAZEPINES SCREEN URINE NEGATIVE (NEGATIVE); *COCAINE SCREEN URINE NEGATIVE (NEGATIVE); CANNABINOID URINE SCREEN PRESUMTIVE POSITIVE (NEGATIVE); METHADONE URINE SCREEN NEGATIVE (NEGATIVE); OPIATES URINE SCREEN PRESUMTIVE POSITIVE (NEGATIVE); PHENCYCLIDINE URINE SCREEN NEGATIVE (NEGATIVE)
[2023-04-24 16:48] LABS: ETHANOL BLOOD < 10 mg/dL
[2023-04-24] MEDS ORDERED: ACETAMINOPHEN 325MG TABLET PO ONE (18:15)
[2023-04-24] MEDS ORDERED: BENZ200C52 MT (18:15)
== END 2023-04-24 18:28 | disposition home or self-care (01) ==
LOC: ER 12:51
DX: R05.9 Cough, unspecified (principal); E11.9 Type 2 diabetes mellitus without complications; Z88.6 Allergy status to analgesic agent; Z79.899 Other long term (current) drug therapy
CPT/HCPCS: 36415; 71045; 80053; 80305; 80320; 85025; 93005; 99285; G0480

== ENCOUNTER 2023-05-02 06:41 | Emergency (ER) | payer BC ==
[~2023-05-02] VITALS: Ht 177.8 cm; Wt 41.7 kg
[~2023-05-02 06:41] MED LIST changes: +BENZ200C52 MT
[2023-05-02 08:01] LABS: BASOPHILS % 0.6 % (0.0-2.0); EOSINOPHILS % 0.6 % (0.0-5.0); HEMATOCRIT. 32.4 % (36.0-48.0); HEMOGLOBIN. 10.2 g/dL (12.0-16.0); LYMPHOCYTES % 18.4 % (20.0-50.0); MEAN CORPUSCULAR HEMOGLOBIN 22.3 pg (28.0-32.0); MEAN CORPUSCULAR VOLUME 71.1 fL (81.0-99.0); MEAN PLATELET VOLUME 8.3 fl (7.4-10.4); MONOCYTES % 5.5 % (2.0-8.0); NEUTROPHILS % 74.9 % (40.0-76.0); PLATELET 530 x1000/uL (130-400); RED BLOOD CELL COUNT 4.56 mill/uL (4.2-5.4); RED CELL DISTRIBUTION WIDTH 16.1 % (11.6-14.6)
[2023-05-02 08:23] LABS: CHLORIDE 99 mEq/L (98-107)
[2023-05-02] MEDS ORDERED: SODIUM CHLORIDE 0.9% 1,000 ML IV ONE (09:00)
[2023-05-02 09:31] LABS: BG BASE EXCESS 3.4 mmol/L (-2.0-2.0); BG DEOXYHEMOGLOBIN 3.5 % (0.0-5.0); BG HCO3 ACT 26.7 mmol/L (22.0-26.0); BG METHEMOGLOBIN 0.3 % (0.0-1.5); BG OXYGEN SATURATION 96.5 % (92.0-98.5); BG OXYHEMOGLOBIN 96.2 % (94.0-97.0); BG PCO2 35.4 mmHg (35.0-45.0); BG PH 7.495 (7.350-7.450); BG PO2 102.3 mmHg (75.0-100.0); BG SAMPLE SITE RIGHT BRACHIAL; BG VENT MODE ROOM AIR
[2023-05-02] MEDS ORDERED: IOHEXOL-350 100 ML BOTTLE ONE (10:12)
[2023-05-02] MEDS ORDERED: IPRATROPIUM BROMIDE (0.02%) 0.5MG/2.5ML NEB HHN NR (10:59)
[2023-05-02] MEDS ORDERED: METHYLPREDNISOLONE SOD SUCC 125 MG/2 ML VIAL IV NR (10:59)
[2023-05-02] MEDS ORDERED: INSULIN REGULAR (HUMULIN R) 300UNITS/3ML VIAL IV NR (11:00)
[2023-05-02] MEDS ORDERED: ALBUTEROL (0.083%) 2.5MG/3ML NEB HHN SCH (11:00)
[2023-05-02 14:20] VITALS: BP 138/97
== END 2023-05-02 14:47 | disposition home or self-care (01) ==
LOC: ER 06:41
DX: R06.02 Shortness of breath (principal); R07.89 Other chest pain; E11.9 Type 2 diabetes mellitus without complications; Z20.822 Contact with and (suspected) exposure to COVID-19
CPT/HCPCS: 36415; 36600; 71045; 71275; 80053; 82375; 82805; 83690; 84145; 84484; 85025; 87426; 87804; 93005; 96361; 96374; 96375; 99285; C9803; J1815; J2930; Q9967; Z7610

== ENCOUNTER 2023-06-24 05:22 | Inpatient (IN) | payer BC ==
[~2023-06-24] VITALS: Ht 157.5 cm; Wt 44.5 kg
[2023-06-24 06:19] LABS: BASOPHILS % 0.9 % (0.0-2.0); EOSINOPHILS % 4.5 % (0.0-5.0); HEMATOCRIT. 38.3 % (36.0-48.0); HEMOGLOBIN. 11.8 g/dL (12.0-16.0); LYMPHOCYTES % 36.8 % (20.0-50.0); MEAN CORPUSCULAR HEMOGLOBIN 21.4 pg (28.0-32.0); MEAN CORPUSCULAR VOLUME 69.6 fL (81.0-99.0); MEAN PLATELET VOLUME 7.9 fl (7.4-10.4); MONOCYTES % 7.4 % (2.0-8.0); NEUTROPHILS % 50.4 % (40.0-76.0); PLATELET 402 x1000/uL (130-400); RED CELL DISTRIBUTION WIDTH 17.2 % (11.6-14.6)
[2023-06-24 06:26] LABS: D-DIMER 0.37 mg/L FEU (<0.50); PROTHROMBIN TIME 10.4 sec (9.6-11.0)
[2023-06-24 06:31] LABS: CHLORIDE 101 mEq/L (98-107)
[2023-06-24 09:36] LABS: PLATELET ESTIMATE NORMAL
[2023-06-24] MEDS ORDERED: NITROGLYCERIN OINT 1GM/INCH UDPKT TD ONE (10:15)
[2023-06-24] MEDS ORDERED: ASPIRIN 81MG TABLET PO ONE (10:15)
[2023-06-24] MEDS ORDERED: GUAIFENESIN 200MG/10ML SUGAR FREE UDC PO PRN (12:15)
[2023-06-24] MEDS ORDERED: LORAZEPAM 0.5MG TABLET PO PRN (12:15)
[2023-06-24] MEDS ORDERED: MAGNESIUM/ALUMINUM HYDROXIDE/SIMETHICONE 30ML UDC PO PRN (12:15)
[2023-06-24] MEDS ORDERED: CLONIDINE 0.1MG TABLET PO PRN (12:15)
[2023-06-24] MEDS ORDERED: DIPHENHYDRAMINE 50MG/ML VIAL IV PRN (12:15)
[2023-06-24] MEDS ORDERED: ACETAMINOPHEN 325MG TABLET PO PRN (12:15)
[2023-06-24] MEDS ORDERED: DOCUSATE SODIUM 100MG CAPSULE PO PRN (12:15)
[2023-06-24] MEDS ORDERED: IPRATROPIUM/ALBUTEROL 0.5-3(2.5)MG/3ML NEB HHN PRN (12:15)
[2023-06-24] MEDS ORDERED: ONDANSETRON HCL 4MG/2ML INJ IV PRN (12:15)
[2023-06-24] MEDS: ENOXAPARIN 40MG/0.4ML SYR SUBCUT SCH (12:15)
[2023-06-24] MEDS ORDERED: DEXTROSE 50% WATER 50ML SYRINGE IV PRN (12:30)
[2023-06-24 12:32] LABS: CREATINE KINASE 90 IU/L (26-192)
[2023-06-24 13:36] LABS: TOTAL IRON BINDING CAPACITY 563 ug/dL (250-450)
[2023-06-24] MEDS ORDERED: REGADENOSON 0.4 MG/5 ML IV NR (15:00)
[2023-06-24] MEDS ORDERED: EMPA1TAB9 PO (15:22)
[2023-06-24] MEDS ORDERED: SIMV5TAB58 MT (15:22)
[2023-06-24 15:31] VITALS: BP 141/92; PULSE 109; RESP 18; TEMP 97.9
[2023-06-24 15:36] LABS: VITAMIN B12 SERUM > 2000.0 pg/mL (211-911)
[2023-06-24] MEDS: ACETAMINOPHEN 325MG TABLET PO PRN (15:43)
[2023-06-24 16:00] VITALS: BP 116/80; PULSE 98; RESP 20; TEMP 97.4
[2023-06-24] MEDS: BLOOD SUGAR DIAGNOSTIC STRIP TEST SCH ×2 (17:25→20:31)
[2023-06-24 17:38] LABS: FOLIC ACID (FOLATE) SERUM > 20.00 ng/mL (>5.38)
[2023-06-24] MEDS: INSULIN LISPRO 100 UNITS/ML SUBCUT SCH ×2 (17:46→20:35)
[2023-06-24 20:00] VITALS: BP 99/70; PULSE 98; RESP 20; TEMP 98
[2023-06-24] MEDS: AMLODIPINE 2.5MG TABLET PO SCH (20:31)
[2023-06-24] MEDS: FAMOTIDINE 20MG TABLET PO SCH (20:33)
[2023-06-25] VITALS: BP 118/79; PULSE 91; RESP 20; TEMP 98.6
[2023-06-25] MEDS: ACETAMINOPHEN 325MG TABLET PO PRN (02:46)
[2023-06-25 04:00] VITALS: BP 110/80; PULSE 98; RESP 18; TEMP 98
[2023-06-25] MEDS: BLOOD SUGAR DIAGNOSTIC STRIP TEST SCH ×4 (06:34→21:31)
[2023-06-25 07:33] LABS: BASOPHILS % 0.9 % (0.0-2.0); EOSINOPHILS % 5.9 % (0.0-5.0); HEMATOCRIT. 32.6 % (36.0-48.0); HEMOGLOBIN. 10.1 g/dL (12.0-16.0); LYMPHOCYTES % 37.2 % (20.0-50.0); MEAN CORPUSCULAR HEMOGLOBIN 21.3 pg (28.0-32.0); MEAN CORPUSCULAR VOLUME 68.7 fL (81.0-99.0); MEAN PLATELET VOLUME 8.1 fl (7.4-10.4); MONOCYTES % 9.7 % (2.0-8.0); NEUTROPHILS % 46.3 % (40.0-76.0); PLATELET 334 x1000/uL (130-400); RED BLOOD CELL COUNT 4.75 mill/uL (4.2-5.4); RED CELL DISTRIBUTION WIDTH 17.3 % (11.6-14.6)
[2023-06-25] MEDS: INSULIN LISPRO 100 UNITS/ML SUBCUT SCH ×4 (07:40→21:40)
[2023-06-25] MEDS: AMLODIPINE 2.5MG TABLET PO SCH ×2 (09:00→21:00)
[2023-06-25] MEDS: ASPIRIN 81MG EC TABLET PO SCH (09:00)
[2023-06-25] MEDS: ENALAPRIL 5MG TABLET PO SCH (09:00)
[2023-06-25] MEDS: GABAPENTIN 100MG CAPSULE PO SCH (09:00)
[2023-06-25 12:00] VITALS: BP 123/88; PULSE 105; RESP 18; TEMP 97.9
[2023-06-25] MEDS: ENOXAPARIN 40MG/0.4ML SYR SUBCUT SCH (12:15)
[2023-06-25 14:08] LABS: CHLORIDE 100 mEq/L (98-107)
[2023-06-25 14:42] LABS: AMYLASE 30 IU/L (25-115); HDL CHOLESTEROL 62 mg/dL (40-59); LDL CHOLESTEROL 58 mg/dL (5-100); T4 FREE 1.34 ng/dL (0.76-1.46)
[2023-06-25 16:00] VITALS: BP 114/90; PULSE 103; RESP 18; TEMP 98.4
[2023-06-25 18:48] VITALS: BP 114/90; PULSE 107; RESP 18; TEMP 98.4
[2023-06-25 20:00] VITALS: BP 111/76; PULSE 101; RESP 16; TEMP 97.5
[2023-06-25] MEDS: FAMOTIDINE 20MG TABLET PO SCH (21:32)
[2023-06-26] VITALS: BP 123/83; PULSE 91; RESP 15; TEMP 97.2
[2023-06-26] MEDS: BLOOD SUGAR DIAGNOSTIC STRIP TEST SCH ×2 (06:55→12:18)
[2023-06-26] MEDS: INSULIN LISPRO 100 UNITS/ML SUBCUT SCH ×2 (06:57→13:02)
[2023-06-26 08:00] VITALS: BP 135/96; PULSE 102; RESP 18; TEMP 98.8
[2023-06-26] MEDS: ENALAPRIL 5MG TABLET PO SCH (09:17)
[2023-06-26] MEDS: GABAPENTIN 100MG CAPSULE PO SCH (09:17)
[2023-06-26] MEDS: AMLODIPINE 2.5MG TABLET PO SCH (09:17)
[2023-06-26] MEDS: ASPIRIN 81MG EC TABLET PO SCH (09:17)
[2023-06-26 11:18] VITALS: BP 135/96; PULSE 98; TEMP 98.8; O2SAT 100
[2023-06-26 11:39] LABS: BASOPHILS % 1.1 % (0.0-2.0); EOSINOPHILS % 4.7 % (0.0-5.0); HEMATOCRIT. 34.5 % (36.0-48.0); HEMOGLOBIN. 10.5 g/dL (12.0-16.0); LYMPHOCYTES % 39.4 % (20.0-50.0); MEAN CORPUSCULAR HEMOGLOBIN 21.2 pg (28.0-32.0); MEAN CORPUSCULAR VOLUME 69.3 fL (81.0-99.0); MONOCYTES % 7.9 % (2.0-8.0); NEUTROPHILS % 46.9 % (40.0-76.0); PLATELET 327 x1000/uL (130-400); RED BLOOD CELL COUNT 4.97 mill/uL (4.2-5.4); RED CELL DISTRIBUTION WIDTH 17.3 % (11.6-14.6)
[2023-06-26 11:57] LABS: CHLORIDE 101 mEq/L (98-107)
[2023-06-26] MEDS: ENOXAPARIN 40MG/0.4ML SYR SUBCUT SCH (13:00)
== END 2023-06-26 18:26 | disposition home or self-care (01) | DRG 206 ==
LOC: ER 05:22 → 8WST 11:46 → EDBEDREQTM 12:09 → EDBEDREQ 12:09
PROVIDERS: ADMIT Hospitalist; ATTEND Hospitalist
DX: M94.0 Chondrocostal junction syndrome [Tietze] (principal); K86.1 Other chronic pancreatitis; E78.5 Hyperlipidemia, unspecified; D50.9 Iron deficiency anemia, unspecified; E11.9 Type 2 diabetes mellitus without complications; I11.9 Hypertensive heart disease without heart failure; F12.90 Cannabis use, unspecified, uncomplicated; F41.9 Anxiety disorder, unspecified; Z60.2 Problems related to living alone; G89.4 Chronic pain syndrome; J44.9 Chronic obstructive pulmonary disease, unspecified; Z79.4 Long term (current) use of insulin; Z79.82 Long term (current) use of aspirin; Z79.84 Long term (current) use of oral hypoglycemic drugs; Z79.899 Other long term (current) drug therapy; Z88.6 Allergy status to analgesic agent; Z88.8 Allergy status to other drugs, medicaments and biological substances
CPT/HCPCS: 36415; 71045; 80048; 80053; 80061; 82150; 82550; 82607; 82746; 82962; 83036; 83540; 83550; 83735; 83880; 84439; 84443; 84484; 85025; 85379; 86803; 93005; 93306; 99285; J1650; J1815